=== PATIENT | female | born 1970 | race Caucasian/White ===

== ENCOUNTER 2018-09-14 04:46 | Day surgery (SDC) | payer BC, OTHER ==
[2018-09-07 15:25] VITALS: BMI 27.0
[2018-09-14] MEDS ORDERED: PROPOFOL 20 ML ONE (13:48)
[2018-09-14] MEDS ORDERED: MIDAZOLAM HCL 2 MG/2 ML SINGLE DOSE VIAL ONE (13:48)
[2018-09-14] MEDS ORDERED: LIDOCAINE HCL/PF 2% SDV 5ML VIAL ONE (13:48)
--- NOTE | 2018-09-14 13:50 | HP ---
History & Physical Update - Physical Physical: No Change - Assessment Assessment: No Change - Plan Plan: No Change (H&P reviwed , no cahanges)
[2018-09-14] MEDS ORDERED: IBUPROFEN 800 MG/8 ML IJ IVPB PRN (13:53)
[2018-09-14] MEDS ORDERED: oxyCODONE HCL 5 MG TABLET PO PRN (13:53)
[2018-09-14] MEDS ORDERED: ONDANSETRON 4 MG/2 ML VIAL IVPUSH PRN (13:53)
[2018-09-14] MEDS ORDERED: IBUPROFEN 600 MG TABLET (FP) PO PRN (13:53)
[2018-09-14] MEDS ORDERED: ELECTROLYTE-148 SOLN 1,000 ML IV SCH (14:00)
[2018-09-14] MEDS ORDERED: KETOROLAC TROMETHAMINE 30 MG/1 ML VIAL ONE (14:18)
[2018-09-14] MEDS ORDERED: DEXAMETHASONE SOD PHOSPHATE 4 MG/1 ML VIAL ONE (14:18)
[2018-09-14] MEDS ORDERED: ACETAMINOPHEN 500 MG TABLET (FP) PO PRN (14:44)
[2018-09-14] MEDS ORDERED: LACTATED RINGERS SOLUTION 1,000 ML IV SCH (14:45)
[2018-09-14] MEDS ORDERED: ACETAMINOPHEN INJECTION 100 ML IVPB ONE (14:55)
[2018-09-14 16:42] VITALS: BP 121/79; PULSE 88; TEMP 97.9
--- NOTE | 2018-09-15 11:19 | OP ---
DATE OF OPERATION: 09/14/2018 PREOPERATIVE DIAGNOSIS: Menometrorrhagia, fibroid uterus. POSTOPERATIVE DIAGNOSIS: Menometrorrhagia, fibroid uterus. PROCEDURE: Hysteroscopy, dilatation and curettage, resection of submucous myoma and endometrial polypectomy. SURGEON: Jarvis Kelley MD ANESTHESIA: General. ANESTHESIOLOGIST: Neema Lewis MD ESTIMATED BLOOD LOSS: 50 mL. DESCRIPTION OF PROCEDURE: The patient was taken to the operating room, and under adequate general anesthesia in dorsal lithotomy position, examination under anesthesia revealed external genitalia to be normal. Vagina was normal. Cervix was clean. Uterus was enlarged, approximately 18 weeks size, irregular, with multiple fibroids. Adnexa, no masses were palpable. Then, with a weighted speculum in the vagina, anterior lip of the cervix was grasped with a single tooth tenaculum. Cervix was slightly dilated. Then, Symphion Resectoscope was introduced into the uterine cavity, and the cervical canal appeared to be normal. Endometrium was irregular with a large fibroid in the left lateral wall of the uterus, and endometrial polyp in the lower uterine segment. Both cornua regions were visualized, and the endometrium appeared to be atrophic with no other abnormality noted. Then, with the resectoscope, first endometrial polyp was resected, and then, the leiomyoma in the wall of the uterus was resected, but because of the broad base, unable to remove the whole fibroid. A small amount of bleeding was seen, which was cauterized, and then, hysteroscope was withdrawn, and then endometrium was curetted. Patient tolerated the procedure well, left the OR in good condition. JARVIS KELLEY M.D. [id number]
--- NOTE | 2018-09-18 15:44 | PATH ---
Surgical Pathology Report Patient Name: GRIS PANCHAL [facility]. Rec. #: [id number] /Age/Gender: 1970 (Age: 48) / F Account: [id number] Location: [facility] Taken: 09/14/2018 Received: 09/17/2018 Reported: 09/18/2018 Physicians: Jarvis Kelley M.D. Specimen(s) Received A: FIBROID B: POLYP C: ENDOMETRIAL CURETTINGS Clinical History Irregular menstruation, leiomyoma of uterus Final Diagnosis A. FIBROID, HYSTEROSCOPIC FIBROID RESECTION: FRAGMENTS OF FIBROMUSCULAR TISSUE CONSISTENT WITH SUBMUCOSAL LEIOMYOMA, SECRETORY ENDOMETRIUM, AND ENDOCERVICAL TISSUE WITH SQUAMOUS METAPLASIA. B. POLYP, POLYPECTOMY: ENDOCERVICAL POLYP, SCANT SECRETORY ENDOMETRIUM, AND LOWER UTERINE SEGMENT. C. ENDOMETRIAL CURETTINGS, DILATION AND CURETTAGE: FRAGMENTS OF SECRETORY ENDOMETRIUM AND FIBROMUSCULAR TISSUE. Electronically Signed Neli Painter M.D. Gross Description A. Received in formalin labeled "fibroid," is a 2.0 x 1.5 x 0.2 cm aggregate of connelly portions of soft tissue admixed with blood clot. The specimen is submitted in toto in one cassette. B. Received in formalin labeled "polyp," are 2 connelly, irregular to polypoid portions of soft tissue measuring 1.0 and 1.5 cm in greatest dimension. The specimens are submitted in toto in one cassette. C. Received in formalin labeled "endometrial curettings," is a 3.4 x 2.5 x 0.3 cm aggregate of connelly-brown soft tissue fragments admixed with blood clot. The formalin is filtered and the specimen is entirely submitted in 2 cassettes. /09/17/2018 [facility]
== END 2018-09-14 15:55 | disposition home or self-care (01) ==
LOC: JASU-SURG 04:46
PROVIDERS: ATTEND Obstetrics & Gynecology
PROC: 0UDB7ZX Extraction of Endometrium, Via Natural or Artificial Opening, Diagnostic (ICD-10-PCS; 2018-09-14)
PROC: 0UJD8ZZ Inspection of Uterus and Cervix, Via Natural or Artificial Opening Endoscopic (ICD-10-PCS; 2018-09-14)
PROC: 0UB98ZZ Excision of Uterus, Via Natural or Artificial Opening Endoscopic (ICD-10-PCS; principal; 2018-09-14 14:00)
PROC: 0UB97ZX Excision of Uterus, Via Natural or Artificial Opening, Diagnostic (ICD-10-PCS; 2018-09-14 14:00)
DX: N92.1 Excessive and frequent menstruation with irregular cycle (principal); D25.9 Leiomyoma of uterus, unspecified
CPT/HCPCS: 36415; 84703; 88305-TC; 94760; J0131

== ENCOUNTER 2020-07-24 04:27 | Day surgery (SDC) | payer BC ==
[2020-07-20 19:29] VITALS: BMI 27.3
[2020-07-24] MEDS ORDERED: DEXAMETHASONE SOD PHOSPHATE 4 MG/1 ML VIAL ONE (07:13)
[2020-07-24] MEDS ORDERED: LIDOCAINE HCL/PF 2% SDV 5ML VIAL ONE (07:13)
[2020-07-24] MEDS ORDERED: PROPOFOL 20 ML ONE ×4 (07:13→08:18)
[2020-07-24] MEDS ORDERED: MIDAZOLAM HCL 2 MG/2 ML SINGLE DOSE VIAL ONE (07:13)
[2020-07-24] MEDS ORDERED: SUCCINYLCHOLINE CHLORIDE 200 MG/10 ML SYRINGE ONE (08:19)
[2020-07-24] MEDS ORDERED: KETOROLAC TROMETHAMINE 30 MG/1 ML VIAL ONE (08:35)
[2020-07-24] MEDS ORDERED: IBUPROFEN 800 MG/8 ML IJ IVPB PRN (08:43)
[2020-07-24] MEDS ORDERED: ONDANSETRON 4 MG/2 ML VIAL IVPUSH PRN (08:43)
[2020-07-24] MEDS ORDERED: IBUPROFEN 600 MG TABLET (FP) PO PRN (08:43)
[2020-07-24] MEDS ORDERED: oxyCODONE HCL 5 MG TABLET PO PRN ×2 (08:43→08:48)
[2020-07-24] MEDS ORDERED: ELECTROLYTE-148 SOLN 1,000 ML IV SCH (08:45)
[2020-07-24] MEDS ORDERED: LACTATED RINGERS SOLUTION 1,000 ML IV SCH (09:00)
[2020-07-24] MEDS ORDERED: ALBUTEROL SO4 0.083% IH SOL 2.5 MG/3 ML VIAL.NEB. NEB ONE ×2 (09:23→09:39)
[2020-07-24 11:00] VITALS: TEMP 97.8
[2020-07-24 11:05] VITALS: BP 134/82; PULSE 84
== END 2020-07-24 11:05 | disposition home or self-care (01) ==
LOC: JASU-SURG 04:27
PROVIDERS: ATTEND Obstetrics & Gynecology
PROC: 0UDB7ZX Extraction of Endometrium, Via Natural or Artificial Opening, Diagnostic (ICD-10-PCS; 2020-07-24)
PROC: 0UJD8ZZ Inspection of Uterus and Cervix, Via Natural or Artificial Opening Endoscopic (ICD-10-PCS; 2020-07-24)
PROC: 0UB98ZZ Excision of Uterus, Via Natural or Artificial Opening Endoscopic (ICD-10-PCS; principal; 2020-07-24 07:30)
DX: N92.1 Excessive and frequent menstruation with irregular cycle (principal); D25.0 Submucous leiomyoma of uterus
CPT/HCPCS: 81025; 88305-TC; 94760